=== PATIENT | female | born 2000 | race Caucasian/White ===

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

== ENCOUNTER 2020-03-29 14:15 | Emergency (ER) | payer OTHER ==
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
[2020-03-29] MEDS ORDERED: HALOPERIDOL LACTATE INJ 5 MG/ML VIAL IM ONE (14:26)
[2020-03-29] MEDS ORDERED: diphenhydrAMINE HCL 50 MG/ML VIAL IM ONE (14:27)
[2020-03-29] MEDS ORDERED: POTASSIUM CHLORIDE ELIXIR 20 MEQ/15 ML UD PO ONE (15:58)
[2020-03-29] MEDS ORDERED: MAGNESIUM OXIDE 400 MG TAB PO ONE (15:59)
--- NOTE | 2020-03-29 16:53 | CT ---
EXAM: CT Head Without Intravenous Contrast CLINICAL HISTORY: The patient is 19 years old and is Female; psychosis TECHNIQUE: Axial computed tomography images of the head/brain without intravenous contrast. Sagittal and coronal reformatted images were created and reviewed. This CT exam was performed using one or more of the following dose reduction techniques: automated exposure control, adjustment of the mA and/or kV according to patient size, and/or use of iterative reconstruction technique. COMPARISON: No relevant prior studies available. FINDINGS: Brain: Unremarkable. No hemorrhage. No significant white matter disease. No edema. Ventricles: Unremarkable. No ventriculomegaly. Bones/joints: Unremarkable. No acute fracture. Soft tissues: Unremarkable. Sinuses: Unremarkable as visualized. No acute sinusitis. Mastoid air cells: Unremarkable as visualized. No mastoid effusion. IMPRESSION: Normal head/brain CT. Electronically signed by: Min David MD 03/29/2020 4:51 PM CDT
[2020-03-29 20:04] VITALS: BP 110/51; TEMP 97.3; O2SAT 95
== END 2020-03-29 19:50 ==
LOC: ER 14:15
DX: F22 Delusional disorders (principal); R44.3 Hallucinations, unspecified; R41.82 Altered mental status, unspecified; E87.6 Hypokalemia; E83.42 Hypomagnesemia
CPT/HCPCS: 36415; 70450; 80053; 80307; 80320; 80329; 81001; 81025; 82140; 83735; 84443; 85025; 85610; 85730; 93005; J1200; J1630; J2060